=== PATIENT | female | born 1985 | race Caucasian/White ===

== ENCOUNTER 2018-10-15 05:53 | Day surgery (SDC) | payer MEDICAID ==
[2018-10-15] MEDS ORDERED: NS TP ONE (06:00)
[2018-10-15] MEDS ORDERED: MITOMYCIN TP ONE (06:00)
--- NOTE | 2018-10-15 06:07 | POSTANESTH ---
Post Anesthetic Evaluation Cardiovascular Status: Normal, Stable Respiratory Status: Normal, Stable Level of Consciousness/Mental Status: Can Participate in Eval, Mildly Sleepy, Arousable Pain Control: Adequate, Prn Tx Ordered Nausea/Vomiting Control: Adequate, Prn Tx Ordered Complications Possibly Related to Anesthesia: None Noted
--- NOTE | 2018-10-15 06:08 | PDANEPAE ---
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 ANE Past Medical History - Cardiovascular History Hx Hypertension: No Hx Arrhythmias: No Hx Chest Pain: No Hx Coronary Artery / Peripheral Vascular Disease: No Hx CHF / Valvular Disease: No Hx Palpitations: No - Pulmonary History Hx COPD: No Hx Asthma/Reactive Airway Disease: No Hx Recent Upper Respiratory Infection: No Hx Oxygen in Use at Home: No Hx Sleep Apnea: No Sleep Apnea Screening Result - Last Documented: Negative Pulmonary History Comment: SOB INCREASING IN SEVERITY PAST 3 YEARS - Neurologic History Hx Cerebrovascular Accident: No Hx Seizures: No Hx Dementia: No - Endocrine History Hx Diabetes: No Hypothyroid: No Hyperthyroid: No Obesity: no - Renal History Hx Renal Disorders: No - Liver History Hx Hepatic Disorders: No - Neurological & Psychiatric Hx Hx Neurological and Psychiatric Disorders: Yes Neurological / Psychiatric History Comment: depression on Effexor - Cancer History Hx Cancer: No - Congenital Disorder History Hx Congenital Disorders: No - GI History Hx Gastrointestinal Disorders: No - Chronic Pain History Chronic Pain: No - Surgical History Prior Surgeries: NEG ANE Review of Systems Review of Systems: - Exercise capacity METS (RN): 4 METS - Systems Constitutional: Reports: no symptoms EENMT: Reports: no symptoms Respiratory: Reports: shortness of breath ANE Patient History - Allergies Allergies/Adverse Reactions: cashew nut Allergy (Verified 10/09/18 14:55) Anaphylaxis shellfish derived Allergy (Verified 10/09/18 14:54) Anaphylaxis tree nut [Pecans] Allergy (Verified 10/09/18 14:55) Anaphylaxis walnut Allergy (Verified 10/09/18 14:55) Anaphylaxis - Home Medications Home Medications: Venlafaxine 75MG (*) DAILY 10/09/18 [Last Taken 10/14/18] - NPO status NPO Since - Liquids (Date): 10/15/18 NPO Since - Liquids (Time): 05:45 (sips of water) - Anes Hx Anes Hx: no prior problems - Smoking Hx Smoking Status: Never smoked - Family Anes Hx Family Anes Hx: neg - N/A Family Hx Anesthesia Complications: NEG ANE Labs/Vital Signs - Vital Signs Vital Signs: reviewed preoperatively; see RN documention for details Height: 167.64 cm Weight: 57.606 kg ANE Physical Exam - Airway Neck exam: FROM Mallampati Score: Class 2 Mouth exam: normal dental/mouth exam - Pulmonary Pulmonary: clear to auscultation - Cardiovascular Cardiovascular: regular rate and rhythym - ASA Status ASA Status: II ANE Anesthesia Plan Total IV Anesthesia: Yes
[2018-10-15] MEDS ORDERED: TRIAMCINOLONE ACETONIDE 200 MG/5 ML MDV IM ONE (06:16)
[2018-10-15] MEDS ORDERED: LR 1,000 ML IV ONE (06:16)
[2018-10-15] MEDS ORDERED: OXYMETAZOLINE 30 ML NASAL SPRAY ONE (06:22)
[2018-10-15] MEDS ORDERED: EPINEPHrine 1 MG/ML INJ ONE (06:22)
[2018-10-15] MEDS ORDERED: TRIAMCINOLONE ACETONIDE 40 MG/ML VIAL IM ONE (06:30)
[2018-10-15] MEDS ORDERED: TRIAMCINOLONE ACETONIDE 40 MG/ML VIAL ONE (06:41)
--- NOTE | 2018-10-15 06:55 | PDHPUP ---
History & Physical Update H&P update statement: This history and physical update is based on an assessment of the patient which was completed after admission or registration (within 24 hours), but prior to the surgery/procedure. H&P update: H&P reviewed & patient examined, no change in patient's condition since H&P completed
[2018-10-15] MEDS ORDERED: LIDOCAINE 2% 5 ML SDV ONE ×2 (07:12→07:17)
[2018-10-15] MEDS ORDERED: fentaNYL 100 MCG/2 ML INJ ONE (07:12)
[2018-10-15] MEDS ORDERED: LIDO/EPI 2%** Not for Epidural 20 ML MDV ONE (07:12)
[2018-10-15] MEDS ORDERED: PROPOFOL/EMULSION 500 MG/50 ML BOTTLE IV ONE (07:12)
[2018-10-15] MEDS ORDERED: DEXAMETHASONE 4 MG/ML VIAL ONE (07:12)
[2018-10-15] MEDS ORDERED: ROCURONIUM 50 MG/5 ML VIAL ONE (07:12)
[2018-10-15] MEDS ORDERED: LIDO/EPI 1% **Not for Epidural 20 ML MDV ONE (07:13)
[2018-10-15] MEDS ORDERED: PROPOFOL 200 MG/20 ML VIAL ONE ×3 (07:17→08:15)
--- NOTE | 2018-10-15 08:39 | POSTOPPROG ---
Post Op Note Date of Operation: 10/15/18 Surgeon: Ruben Mendoza [employer]ker Developer: none Anesthesia: Other (Specify) (Jet Ventilation) Pre-op Diagnosis: Subglottic Stenosis Post-op Diagnosis: Subglottic Stenosis Indication: Subglottic Stenosis Procedure: Subglottic Stenosis excision and ballooon dilation Findings: Subglottic Stenosis Inf/Abcess present in the surg proc area at time of surgery?: No Depth: Deep Incisional (Fascial) EBL: Minimal Complications: none Bowel Protocol: N/A Clean Closure Performed: N/A Specimen(s): none
[2018-10-15] MEDS: HYDROCODONE/APAP 5/325 TAB PO PRN ×2 (09:38→10:00)
[2018-10-15 10:40] VITALS: BP 123/83
--- NOTE | 2018-11-04 22:38 | GOP ---
[f rep st] OPERATIVE REPORT DATE OF OPERATION: 10/15/2018 SURGEON: Ruben Mendoza MD CERTIFIED MEDICINE AIDE: None. ANESTHESIA: General. PREOPERATIVE DIAGNOSIS: Subglottic stenosis. POSTOPERATIVE DIAGNOSIS: Subglottic stenosis. PROCEDURE PERFORMED: Subglottic stenosis excision and balloon dilation. FINDINGS: SPECIMENS: None. ESTIMATED BLOOD LOSS: Minimal. INDICATIONS: Patient was seen in outpatient clinic and found to have a long history of difficulty br eathing. Following in office laryngoscopy and CT scan, this confirmed that she had subglottic stenos is. Given her history and findings, she was determined to be an appropriate candidate for the above- stated procedures. The risks, benefits, and alternatives to the procedures were explained at length to the patient, who stated she understood and wished to go forward with the procedures. DESCRIPTION OF PROCEDURE: Patient was brought to the operating room by Anesthesiology and placed on the operating table. Once appropriate level of anesthesia was achieved via mask ventilation, the pat ient was prepped and draped in the usual fashion and positioned appropriately for laryngoscopy. A te eth guard was placed on the upper teeth, and a Dedo laryngoscope was advanced through the oral cavity and through the hypopharynx for visualization of supraglottic structures. Dedo laryngoscope was the n passed to the vocal cords. 4% lidocaine spray was applied to the larynx and subglottis. The scope was advanced just enough to allow separation of the true vocal folds. It was then suspended in plac e, and the jet ventilation anesthesia was applied. A 0-degree Crouch ky attached to a video camera was then used to view structures of the glottis and subglottis. The subglottic stenosis was visuali zed. A butterfly needle advanced with a microlaryngeal grasper was passed through the scope, and a m ixture of Kenalog 40 with 1% lidocaine and 1:100,000 epinephrine in a 1:3 dilution was then injected circumferentially at the site of the subglottic stenosis. A total of 0.5 cc was injected. The butte rfly needle was then withdrawn. Following this the Omni guide laser was prepared with the [employer] e hand piece. It was set to 6 hansen continuous. At 6 hansen continuous, incisions were made in the m ucosa of the stenotic tissue at 12 o'clock, 2 o'clock, 4 o'clock, 7 o'clock, and 10 o'clock. There w as minimal bleeding with this, and hemostasis was achieved with application of Afrin-soaked pledget. Once these cuts were completed, the laser was withdrawn. At this point, a CRE balloon dilator was p assed through the Dedo laryngoscope and glottis to the level of the stenosis in the subglottis. This was dilated to a pressure of 4 atmospheres for 30 seconds. After 30 seconds the balloon was deflate d and withdrawn to allow for adequate jet ventilation. This was reapplied for a total of 4 dilations . These were able to be dilated for as long as a minute without difficulty with jet ventilation ____ without difficulty with significant desaturation. Once this was completed, the balloon was wi thdrawn completely. Application of 0.5% mitomycin-C was then applied via pledget to the surgical sit e for a total of 4 minutes. After the pledget was withdrawn, the site was visualized and there was n o bleeding and no evidence of perforation. The endoscope was withdrawn. The Dedo laryngoscope was w ithdrawn. The teeth guard was then removed. The patient tolerated the procedure well, and anesthesi a was reversed in the operating room prior to the patient being transferred in good condition to the postanesthesia care unit. COMPLICATIONS: None. COMPLICATIONS: None. /[id number]/MODL
== END 2018-10-15 10:38 | disposition home or self-care (01) ==
LOC: FSGY 05:53
PROVIDERS: ATTEND Otolaryngology
PROC: 0C7S8ZZ Dilation of Larynx, Via Natural or Artificial Opening Endoscopic (ICD-10-PCS; principal; 2018-10-15 07:15)
PROC: 0C5S8ZZ Destruction of Larynx, Via Natural or Artificial Opening Endoscopic (ICD-10-PCS; principal; 2018-10-15 07:15)
DX: J38.6 Stenosis of larynx (principal); F32.9 Major depressive disorder, single episode, unspecified
CPT/HCPCS: 31528; 31599; C1726; J0171; J1100; J2704; J3010; J3301